=== PATIENT | female | born 1950 | race Caucasian/White ===

== ENCOUNTER → 2016-08-02 | Outpatient (CLI) | payer MEDICARE, BC ==
[~2016-08-02] MED LIST: ASPIRIN EC81 MG PO; CALCIUM 500 +1 EACH PO; COZAAR100 MG PO; FISH OIL 1,2001 EACH PO; LIPITOR10 MG PO; THERA-VITE W/ B1 TAB PO; TYLENOL WITH C1 EACH PO; VITAMIN D1000 UNIT PO
== END | disposition disaster alternative care site (69) ==
LOC: GRAD 08:13
DX: N20.0 Calculus of kidney (principal)